=== PATIENT | male | born 1935 | race Caucasian/White ===

== ENCOUNTER → 2018-05-12 10:53 | Outpatient (CLI) | payer MEDICARE, BC ==
[~2018-05-12 10:53] MED LIST: ASCORBIC ACID500 MG PO; ASPIRIN325 MG PO; BAYER CHEWABLE81 MG PO; CATAPRES0.1 MG PO; EFFIENT10 MG PO; NEXIUM40 MG PO; NITROSTAT0.4 MG SL; PLAVIX75 MG PO; PRAVACHOL40 MG PO; PRILOSEC20 MG PO; STOOL SOFTENER240 MG PO; TRIBENZOR 40-11 EAC1 PO; [UNRECOGNIZED DRUG - OTHER] PO
== END | disposition home or self-care (01) ==
LOC: D.CT 10:53
DX: R91.8 Other nonspecific abnormal finding of lung field (principal); R49.0 Dysphonia; T17.920A Food in respiratory tract, part unspecified causing asphyxiation, initial encounter

== ENCOUNTER 2018-05-19 08:17 | Outpatient (CLI) | payer MEDICARE, BC ==
[~2018-05-19] VITALS: Ht 170.2 cm; Wt 69.5 kg
[2018-05-19 08:37] LABS: BASOPHILS 0.5 % (0-2); EOSINOPHILS 1.2 % (0-7); HEMATOCRIT 28.5 % (42.0-54.0); HEMOGLOBIN 9.2 g/dL (13.5-17.5); IMMATURE GRANULOCYTES 0.1 % (0-5); LYMPHOCYTES 27.5 % (15-50); MCH 28.6 pg (26.0-34.0); MCHC 32.3 g/dL (31.0-37.0); MCV 88.5 fL (80.0-100.0); MEAN PLATELET VOLUME 8.3 fL (7.4-10.4); MONOCYTES 8.8 % (2-11); NEUTROPHILS 61.9 % (40-80); PLATELET COUNT 267 10x3/uL (130-400); RBC 3.22 10x6/uL (4.20-6.10); RDW 14.8 % (11.5-14.5); WBC 7.5 10x3/uL (4.8-10.8)
[2018-05-19 08:43] LABS: ANION GAP 12.5 mmol/L (8-16); CALCIUM 9.2 mg/dL (8.5-10.1); CARBON DIOXIDE 27.6 mmol/L (21.0-32.0); CREATININE - SERUM 1.1 mg/dL (0.6-1.3); POTASSIUM - SERUM 4.1 mmol/L (3.5-5.1)
[2018-05-19 08:54] LABS: APTT 31.9 SECONDS (22.8-39.4); INR 1.04 (0.85-1.17); PROTIME 13.1 SECONDS (11.6-15.0)
[2018-05-19] MEDS ORDERED: MAG 6464 MG PO (09:47)
[2018-05-19] MEDS ORDERED: SLOW RELEASE I160 MG PO (09:48)
[2018-05-19] MEDS ORDERED: LOSARTAN-HCTZ1 EAC2 PO (09:48)
[2018-05-19] MEDS ORDERED: FLOMAX0.4 MG PO (09:48)
[2018-05-19 09:51] VITALS: Ht 170.2 cm; Wt 69.5 kg
--- NOTE | 2018-05-19 15:52 | NUR ---
1300-PORTABLE CHEST XRAY AT THIS TIME. 1430-ESCORTED VIA WHEELCHAIR TO PERSONAL CAR, LEFT WITH FAMILY DRIVING.
== END 2018-05-19 14:30 ==
LOC: D.SP 08:17 → D.CT 11:00 → D.SP 11:00
PROVIDERS: General Practice
DX: R91.8 Other nonspecific abnormal finding of lung field (principal)

== ENCOUNTER 2018-07-06 07:59 | Inpatient (IN) | payer MEDICARE, BC ==
[~2018-07-06] VITALS: Ht 170.2 cm; Wt 63.1 kg
[~2018-07-06 07:59] MED LIST changes: +FLOMAX0.4 MG PO; +LOSARTAN-HCTZ1 EAC2 PO; +MAG 6464 MG PO; +SLOW RELEASE I160 MG PO
[2018-07-06] MEDS ORDERED: METOPROLOL TART25 MG PO (09:44)
[2018-07-06] MEDS ORDERED: MAG-OX 400 MG400 MG PO (09:46)
[2018-07-06] MEDS ORDERED: COLACE100 MG PO (09:47)
[2018-07-06 11:30] LABS: BASOPHILS 0.5 % (0-2); EOSINOPHILS 1.8 % (0-7); HEMATOCRIT 30.7 % (42.0-54.0); HEMOGLOBIN 9.8 g/dL (13.5-17.5); IMMATURE GRANULOCYTES 0.6 % (0-5); LYMPHOCYTES 27.7 % (15-50); MCH 29.5 pg (26.0-34.0); MCHC 31.9 g/dL (31.0-37.0); MCV 92.5 fL (80.0-100.0); MEAN PLATELET VOLUME 9.6 fL (7.4-10.4); MONOCYTES 10.6 % (2-11); NEUTROPHILS 58.8 % (40-80); PLATELET COUNT 216 10x3/uL (130-400); RBC 3.32 10x6/uL (4.20-6.10); WBC 9.6 10x3/uL (4.8-10.8)
[2018-07-06 11:40] LABS: APTT 33.5 SECONDS (22.8-39.4); INR 1.07 (0.85-1.17); PROTIME 13.4 SECONDS (11.6-15.0)
[2018-07-06 11:47] LABS: ALBUMIN 2.6 g/dL (3.4-5.0); ANION GAP 13.5 mmol/L (8-16); BILIRUBIN - TOTAL 0.24 mg/dL (0.2-1.3); CALCIUM 8.4 mg/dL (8.5-10.1); CARBON DIOXIDE 26.5 mmol/L (21.0-32.0); CREATININE - SERUM 1.1 mg/dL (0.6-1.3); PROTEIN - SERUM 7.7 g/dL (6.4-8.2)
[2018-07-06 12:00] LABS: APPEARANCE HAZY (CLEAR); COLOR YELLOW (YELLOW); GLUCOSE NEGATIVE (NEGATIVE); NITRITE NEGATIVE (NEGATIVE); PROTEIN TRACE mg/dL (NEGATIVE); SPECIFIC GRAVITY 1.005 (1.005-1.020)
[2018-07-06 12:01] LABS: BACTERIA FEW /hpf (NONE SEEN); BILIRUBIN NEGATIVE (NEGATIVE); EPITHELIAL CELLS OCC /hpf (0-5); KETONE NEGATIVE (NEGATIVE); UROBILINOGEN NORMAL (NORMAL)
[2018-07-09] VITALS (56 sets, daily range): BP systolic 100–161; BP diastolic 39–520; BMI 25.2
--- NOTE | 2018-07-09 15:34 | MORECARE ---
CASE MANAGEMENT DISCHARGE SUMMARY PATIENT: DELILAH CR UNIT: [id number] ADM DATE: 07/09/18 AGE: 83 : 36 SEX: M [facility] AUTHOR: MISSY HEAD PHYSICIAN: REFERRING PHYSICIAN: DERIK BISHOP MD DATE OF SERVICE: 07/09/18 Discharge Plan Patient Name: DELILAH CR [facility] [facility] 1935 Planned Disposition: Home Anticipated Discharge Date: Discharge Date: Expected LOS: Initial Reviewer: [email or web address] Initial Review Date: 07/09/2018 Generated: 07/09/18 4:34 pm DCPIA - Discharge Planning Initial Assessment Updated by [email or web address]: Jessica Garcia on 07/09/18 3:34 pm * Is the patient Alert and Oriented? Yes * How many steps to enter\exit or inside your home? ramp * PCP PROSPER * Pharmacy [facility] * Preadmission Environment Home with Family * ADLs Independent * Other Equipment BSC, WALKER, CANE, SHOWER CHAIR * List name and contact numbers for known caregivers / representatives who currently or will assist patient after discharge: LATONIA CR - SPOUSE- [phone], [phone] * Verbal permission to speak to the caregivers and representatives has been obtained from the patient. Yes * Community resources currently utilized None * Additional services required to return to the preadmission environment? No * Can the patient safely return to the preadmission environment? Yes * Has this patient been hospitalized within the prior 30 days at any hospital? No Patient Name: DELILAH CR Page 27769 at 1534 All edits/amendments must be made on the electronic document DICTATION DATE: 07/09/18 153 MINE WEDGE SAWYER: OSMAN 07/09/18 153 RPT#: [id number] DC DATE: STATUS: ADM IN [facility] [address] [place] [address] END OF REPORT
--- NOTE | 2018-07-09 15:44 | MORECARE ---
CASE MANAGEMENT DISCHARGE SUMMARY PATIENT: DELILAH CR UNIT: [id number] ADM DATE: 07/09/18 AGE: 83 : 36 SEX: M ROOM/BED: D.[facility] AUTHOR: ADILENEDOC PHYSICIAN: REFERRING PHYSICIAN: DERIK BISHOP MD DATE OF SERVICE: 07/09/18 Discharge Plan Patient Name: DELILAH CR Facility: [facility]:[place] : 1935 Planned Disposition: Home Anticipated Discharge Date: Discharge Date: Expected LOS: Initial Reviewer: [email or web address] Initial Review Date: 07/09/2018 Generated: 07/09/18 4:44 pm Comments DCP- Discharge Planning Updated by [email or web address]: Jessica Garcia on 07/09/18 2:[address] Patient Name: DELILAH CR Admission Status: Elective Accout number: [id number] Admission Date: 07-09-2018 : 1935 Admission Diagnosis: Attending: DERIK BISHOP Current LOS: 1 Anticipated DC Date: Planned Disposition: Home Primary Insurance: MEDICARE A & B Discharge Planning Comments: CM met with patient and spouse at bedside after obtaining verbal consent. Patient states he plans on returning home after discharge with his . Patient states he will have family transport him home via private vehicle. Patient denies any discharge needs at this time. CM will continue to follow and assist as needed for discharge planning / needs. Seed Sales Manager: Jessica Garcia DCPIA - Discharge Planning Initial Assessment Updated by [email or web address]: Jessica Garcia on 07/09/18 3:34 pm * Is the patient Alert and Oriented? Yes * How many steps to enter\exit or inside your home? ramp * PCP PROSPER * [facility]acy [facility] * Preadmission Environment Home with Family * ADLs Independent * Other Equipment BSC, WALKER, CANE, SHOWER CHAIR * List name and contact numbers for known caregivers / representatives who currently or will assist patient after discharge: LATONIA CR - SPOUSE- [phone], [phone] * Verbal permission to speak to the caregivers and representatives has been obtained from the patient. Yes * Community resources currently utilized None * Additional services required to return to the preadmission environment? No * Can the patient safely return to the preadmission environment? Yes * Has this patient been hospitalized within the prior 30 days at any hospital? No Last DP export: 07/09/18 2:34 p Patient Name: DELILAH CR Page 69508 at 1544 All edits/amendments must be made on the electronic document DICTATION DATE: 07/09/181542 PUBLIC RELATIONS SPECIALIST: OSMAN 07/09/181542 RPT#: [id number] DC DATE: STATUS: ADM IN [facility] [address] [place] [address] END OF REPORT
--- NOTE | 2018-07-09 19:00 | NUR ---
REPORT RECEIVED CARE ASSUMED. ASSESSMENT DONE SEE FLOW SHEET. VSS. PT SPEAKS IN WHISPER DUE TO PREVIOUS THROAT CANCER. PT STATES HE HAS DIFFICULTY SWALLOWING. ICU MONITORS IN PLACE ALARMS SET AND VERIFIED WILL CONTINUE TO MONITOR.
--- NOTE | 2018-07-09 21:00 | NUR ---
MEDS GIVEN PER MAR. PT TAKES MEDS WHOLE WITH APPLE SAUCE. PT STATES HE CANNOT DRINK WATER. COMPLETE BED BATH GIVEN PARTIAL LINEN CHANGE.
--- NOTE | 2018-07-09 23:00 | NUR ---
REASSESSMENT DONE SEE FLOW SHEET. VSS. NO SIGNS OF ACUTE DISTRESSS NOTED. WEANED NC TO 2LPM. WILL CONTINUE TO MONITOR.
[2018-07-10] VITALS (50 sets, daily range): BP systolic 97–156; BP diastolic 43–104; Ht 170.2 cm; Wt 63.1 kg
--- NOTE | 2018-07-10 01:00 | NUR ---
WEANED NITRO OFF. BP LESS THAN 140. VSS. PT VERBALIZES NO COMPLAINTS. WILL CONTINUE TO MONITOR.
--- NOTE | 2018-07-10 02:56 | NUR ---
REASSESSMENT DONE SEE FLOW SHEET. VSS. NO SIGNS OF ACUTE DISTRESS NOTED WILL CONTINUE TO MONITOR.
--- NOTE | 2018-07-10 05:00 | NUR ---
ICE CHIPS PROVIDED PER PT REQUEST. VSS. WILL CONTINUE TO MONITOR.
[2018-07-10 05:41] LABS: HEMATOCRIT 23.8 % (42.0-54.0); HEMOGLOBIN 7.7 g/dL (13.5-17.5); MCH 29.8 pg (26.0-34.0); MCHC 32.4 g/dL (31.0-37.0); MCV 92.2 fL (80.0-100.0); MEAN PLATELET VOLUME 10.1 fL (7.4-10.4); RBC 2.58 10x6/uL (4.20-6.10); RDW 21.7 % (11.5-14.5); WBC 7.9 10x3/uL (4.8-10.8)
--- NOTE | 2018-07-10 05:56 | NUR ---
PT AWAKE. TITRATING NITRO TO AFFECT.
[2018-07-10 06:11] LABS: CALC OSMOLALITY 266 mosm/kg (275-300); CALCIUM 7.6 mg/dL (8.5-10.1); CARBON DIOXIDE 24.4 mmol/L (21.0-32.0); CHLORIDE - SERUM 100 mmol/L (98-107); GLUCOSE 89 mg/dL (74-106); POTASSIUM - SERUM 4.3 mmol/L (3.5-5.1); SODIUM 134 mmol/L (136-145); UREA NITROGEN 12 mg/dL (7-18); eGFR NON AFRICAN AMERICAN 76 mL/min (90-120)
--- NOTE | 2018-07-10 07:00 | NUR ---
REC'D CARE OF PT. A&O X3. TITRATING NITRO AND CLEVEPREX TO EFFECT. DENIES NEEDS EXCEPT WANTED BREAKFAST. TOLD HIM THEY WOULD BE BRING BREAKFAST TRAYS SOON.
--- NOTE | 2018-07-10 07:37 | NUR ---
BREAKFAST TRAY SERVED.
--- NOTE | 2018-07-10 07:55 | NUR ---
AT BEDSIDE. UPDATE BY PT.
--- NOTE | 2018-07-10 08:03 | NUR ---
INITIAL ASSESSMENT COMPLETED PER FLOW SHEET.
--- NOTE | 2018-07-10 08:51 | NUR ---
SPOKE WITH DR. JUNIOR ABOUT CONSULT.
--- NOTE | 2018-07-10 08:52 | NUR ---
LEE PARRA SPOKE WITH DR. DE LOS SANTOS ABOUT CONSULT.
--- NOTE | 2018-07-10 08:53 | NUR ---
OOB TO CHAIR WITH PT
--- NOTE | 2018-07-10 09:11 | NUR ---
REQUESTED ICE, WARM BLANKET AND SOMETHING FOR NAUSEA. OBLIGED.
--- NOTE | 2018-07-10 09:37 | NUR ---
NAUSEA IS BETTER.
--- NOTE | 2018-07-10 10:24 | NUR ---
ADMISSION ASSESSMENT COMPLETED FOR ACTUAL TIME OF ADMIT ON 05/08/19.
--- NOTE | 2018-07-10 11:00 | NUR ---
REASSESSMENT COMPLETED PER FLOW SHEET. NO ACUTE CHANGES.
--- NOTE | 2018-07-10 11:08 | NUR ---
DR. BISHOP AT BEDSIDE.
--- NOTE | 2018-07-10 11:39 | NUR ---
DC'D ART LINE WITH TIP INTACT. DC'D IVF.
--- NOTE | 2018-07-10 13:00 | NUR ---
FAMILY AT BEDSIDE. DENIES NEEDS.
--- NOTE | 2018-07-10 14:21 | NUR ---
AMBULATED 50 FEET WITH ANTWAN PT AND BACK TO BED.
--- NOTE | 2018-07-10 14:42 | NUR ---
CLEVEPREX BEING TITRATED TO EFFECT.
--- NOTE | 2018-07-10 14:55 | NUR ---
REPORT GAVE TO LEE HATHAWAY RN AND SHE ASSUMED CARE.
--- NOTE | 2018-07-10 15:01 | NUR ---
PULLS [phone] ON IS.
--- NOTE | 2018-07-10 15:04 | NUR ---
DESATS TO 89% WHEN HE IS ASLEEP AND MOUTH BREATHING.
--- NOTE | 2018-07-10 20:21 | NUR ---
1900 REPORT RECEIVED CARE ASSUMED. PT LAYING IN BED RESTING. ASSESSMENT DONE SEE FLOW SHEET. VSS. NO SIGNS OF ACUTE DISTRESS NOTED. WILL CONTINUE TO MONITOR. 2020 MEDS GIVEN PER JUL. MEDS TAKEN WITH APPLESAUCE WILL CONTINUE TO MONTIOR.
--- NOTE | 2018-07-10 22:55 | NUR ---
REASSESSMENT DONE SEE FLOW SHEET. VSS. WILL CONTINUE TO MONITOR.
[2018-07-11] VITALS (13 sets, daily range): BP systolic 92–154; BP diastolic 48–80
--- NOTE | 2018-07-11 01:00 | NUR ---
ICE CHIPS PROVIDED PER PT REQUEST WILL CONINUE TO MONITOR.
--- NOTE | 2018-07-11 02:46 | NUR ---
REASSESSMENT DONE SEE FLOW SHEET. VSS. PT RESTING COMFORTABLEY.
--- NOTE | 2018-07-11 03:38 | NUR ---
GROUP OF PVCS NOTED. QUICKLY RESOLVED. VSS. NO SIGNS OF ACUTE DISTRESS NOTED WILL CONTINUE TO MONITOR.
--- NOTE | 2018-07-11 05:00 | NUR ---
PT IN BED RESTING. PARTIAL BED BATH GIVEN VSS. COMPLETE LINEN CHANGE PROVIDED. NO SIGNS OF ACUTE DISTRESS. ICE PROVIDED PER PT REQUEST.
[2018-07-11 06:15] LABS: BASOPHILS 0.5 % (0-2); EOSINOPHILS 0 % (0-7); HEMATOCRIT 24.7 % (42.0-54.0); IMMATURE GRANULOCYTES 0.5 % (0-5); LYMPHOCYTES 17.8 % (15-50); MCH 29.2 pg (26.0-34.0); MCHC 32.4 g/dL (31.0-37.0); MCV 90.1 fL (80.0-100.0); MEAN PLATELET VOLUME 10.1 fL (7.4-10.4); MONOCYTES 13.7 % (2-11); NEUTROPHILS 67.5 % (40-80); PLATELET COUNT 116 10x3/uL (130-400); RBC 2.74 10x6/uL (4.20-6.10); RDW 20.9 % (11.5-14.5); WBC 6.2 10x3/uL (4.8-10.8)
--- NOTE | 2018-07-11 07:00 | NUR ---
REC'D CARE OF PT. RESTING WITH EYES CLOSED. RESPONSE APPROPRIATE TO VERBAL STIMULI. A&O X3.
--- NOTE | 2018-07-11 08:10 | NUR ---
PEREA CATH DC'D FROM BLADDER
--- NOTE | 2018-07-11 09:16 | NUR ---
AMBULATED 200 FEET WITH ANTWAN PT AND PLACED IN CHAIR.
--- NOTE | 2018-07-11 09:26 | NUR ---
AT BEDSIDE. UPDATED.
--- NOTE | 2018-07-11 10:30 | NUR ---
SATTING 100% ON 6L NC. DOES NOT WEAR O2 AT HOME. TURNED OFF.
--- NOTE | 2018-07-11 10:48 | NUR ---
REASSESSMENT COMPLETED. NO ACUTE CHANGES.
--- NOTE | 2018-07-11 10:50 | NUR ---
SATTING 91% ON RA. NO DISTRESS.
--- NOTE | 2018-07-11 11:46 | NUR ---
FAMILY AT BEDSIDE. DENIES NEEDS.
--- NOTE | 2018-07-11 11:47 | NUR ---
SATTING 95% ON RA.
--- NOTE | 2018-07-11 13:27 | OP ---
PATIENT NAME: DELILAH CR MEDICAL RECORD: [id number] :[birth year] LOCATION:D.CVI D.CV07 ADMISSION DATE:07/09/18 SURGEON: ADRIÁN BISHOP MD DATE OF OPERATION: 07/09/2018 SURGEON: Adrián Bishop MD DIRECTOR PERSONAL: CARMELO Valadez MD ANESTHESIA: General endotracheal anesthesia. 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 PROCEDURES PERFORMED: 1. Insertion of bifurcated aortic endograft. 2. Insertion of suprarenal extension. 3. Insertion of left iliac extension. 4. Aortogram times 5. 5. Left iliac angiogram x2. 6. Aortic angioplasty. 7. Open exposure, left femoral artery. ESTIMATED BLOOD LOSS: 50 cc. COMPLICATIONS: None. SPECIMENS: None. CONDITION: Stable. DISPOSITION: CV ICU. OPERATIVE FINDINGS: 1. No endoleak. 2. The left limb was extended due to only moderate coverage of an ectatic vessel. OPERATIVE INDICATIONS: Lung cancer, undergoing chemotherapy with enlarging abdominal aortic aneurysm and bilateral iliac aneurysms. PROCEDURE IN DETAIL: The patient was brought to the operative suite. General anesthesia was obtained. The patient was prepped and draped. Ultrasound-guided access of the right common femoral was performed. Micropuncture technique was performed and using fluoroscopic guidance, a 7-Kyrgyz sheath was placed on the left side, incision was made, taken down to the common femoral artery, which was dissected out proximally to the level of the inguinal ligament and controlled with vessel loops. Heparin was given. The left common femoral artery was accessed with micropuncture technique and a 7-Kyrgyz sheath was placed due to noncontrasted preoperative studies, a guidewire was placed from the right, pigtail catheter was placed. Attempt was OPERATIVE REPORT [id number] DELILAH CR made to pass the guidewire from the left but an aberrant course ensued. Then, a guiding catheter and an angulated guiding catheter were used without success to enter the aorta. Iliac angiogram through the sheath revealed a subintimal passage and the wire and guiding catheter were removed. Aortogram was performed using the measuring pigtail from the right side and used to decide the length of the main body and extension. On the right side, the wire was again placed and the snare catheter and then the snare on the left side. Attempts were again made to pass the guidewire. Another sheath injection was used to guide placement of the guidewire into the distal aorta, then the guiding catheter used to place the soft guidewire more distally, guiding catheter was passed above the renals and the soft guidewire was exchanged for the stiff wire. Left femoral sheath was removed and the AFX sheath was inserted. Then, the bifurcated device, which was 28 x 120 with 20 mm and 40 length limbs, was loaded with a wire and the contralateral wire advanced up and snared from the right, pulled out on the right and the AFX introducer advanced under fluoroscopy until the distal limbs were above the aortic bifurcation, releasing the limbs uncoiling the graft and pulling the entire system down onto the aortic bifurcation. Once confirmed, the main body was deployed. Then, the contralateral limb was deployed. Pigtail was advanced over the contralateral wire releasing the wire and the pigtail was placed in the suprarenal aorta. The left limb was then deployed by pending the inner core and retracting the AFX introducer sheath, a 34 x 100 suprarenal graft extension was loaded onto the stiff wire and brought into place and then an angiogram was performed to visualize the renal arteries. The suprarenal extension was deployed, but prior to the final deployment another angiogram performed to confirm the placement near the right renal. The pigtail catheter was then re-formed in the distal aorta and passed back between the elements in the center of flow and again into the suprarenal aorta. A final run was performed with a good seal proximally, but distally some concern on the left aortic angioplasty was performed using a drug-coated balloon. A 20-25 mm 65 mm long iliac extension was placed on the left, well above the iliac bifurcation. Then, a distal aortogram was performed with good seal. The left limb was ballooned with a 12 x 40 balloon. Final angiogram was good. The pigtail was removed. Left-sided sheath was removed. Primary closure of the left femoral artery with interrupted Prolene suture. Protamine was given. Angio-Seal was deployed on the right. No hematoma was noted. Left groin was closed in 2 layers and Dermabond to the skin. The patient had Doppler dorsalis pedis and posterior tibial pulses and after reversal of anesthesia, was taken to the CV ICU. TRANSINT:[id number] Voice Confirmation ID: [id number] DOCUMENT ID: [id number] ADRIÁN BISHOP MD at 1327 CC: TRISTON DEUTSCH MD [id number] DICTATION DATE: 07/09/18 1343 PROFESSOR OF ECONOMICS: 07/09/18 2335 ADM IN [place] [id number] [place] [id number]
--- NOTE | 2018-07-11 13:36 | NUR ---
I SPOKE WITH CHRIS SPENCE WITH DR. JUNIOR'S OFFICE ABOUT H&H VALUES SHE SAID TO NOT TRANSFUSE.
--- NOTE | 2018-07-11 13:40 | NUR ---
DC CVL AND DISCHARGE HOME PER DR. BISHOP.
--- NOTE | 2018-07-11 13:43 | NUR ---
AMBULATED 200 FEET AND BACK TO CHAIR BY ANTWAN PATTERSON
--- NOTE | 2018-07-11 13:57 | NUR ---
DC'D RIGHT IJ CENTRAL LINE.
--- NOTE | 2018-07-11 14:00 | NUR ---
PATIENT ED PRINTED AND SUPPIED.
--- NOTE | 2018-07-11 14:13 | NUR ---
REVIEWED MEDS AND DC INSTRUCTIONS. TRANSPORTING VIA WC TO FRONT OF CVICU AND ASSISTED INTO VEHICLE.
--- NOTE | 2018-07-12 10:31 | MORECARE ---
CASE MANAGEMENT DISCHARGE SUMMARY PATIENT: DELILAH CR UNIT: [id number] ADM DATE: 07/09/18 AGE: 83 : 36 SEX: M ROOM/BED: D.[facility] AUTHOR: ADILENE,DOC PHYSICIAN: REFERRING PHYSICIAN: DERIK BISHOP MD DATE OF SERVICE: 07/12/18 Discharge Plan Patient Name: DELILAH CR Facility: [facility]:[place] : 1935 Planned Disposition: Home Anticipated Discharge Date: Discharge Date: 07/11/2018 Expected LOS: Initial Reviewer: [email or web address] Initial Review Date: 07/09/2018 Generated: 07/12/18 11:31 am Comments DCP- Discharge Planning Updated by [email or web address]: Jessica Garcia on 07/09/18 2:[address] Patient Name: DELILAH CR Admission Status: Elective Accout number: [id number] Admission Date: 07-09-2018 : 1935 Admission Diagnosis: Attending: DERIK BISHOP Current LOS: 1 Anticipated DC Date: Planned Disposition: Home Primary Insurance: MEDICARE A & B Discharge Planning Comments: CM met with patient and spouse at bedside after obtaining verbal consent. Patient states he plans on returning home after discharge with his . Patient states he will have family transport him home via private vehicle. Patient denies any discharge needs at this time. CM will continue to follow and assist as needed for discharge planning / needs. Foundry Tender: Jessica Garcia DCPIA - Discharge Planning Initial Assessment Updated by [email or web address]: Jessica Garcia on 07/09/18 3:34 pm * Is the patient Alert and Oriented? Yes * How many steps to enter\exit or inside your home? ramp * PCP PROSPER * Pharmacy [facility] * Preadmission Environment Home with Family * ADLs Independent * Other Equipment BSC, WALKER, CANE, SHOWER CHAIR * List name and contact numbers for known caregivers / representatives who currently or will assist patient after discharge: LATONIA CR - SPOUSE- [phone], [phone] * Verbal permission to speak to the caregivers and representatives has been obtained from the patient. Yes * Community resources currently utilized None * Additional services required to return to the preadmission environment? No * Can the patient safely return to the preadmission environment? Yes * Has this patient been hospitalized within the prior 30 days at any hospital? No Last DP export: 07/09/18 2:44 p Patient Name: DELILAH CR Page 05310 at 1031 All edits/amendments must be made on the electronic document DICTATION DATE: 07/12/18 1031 INFORMATION ASSURANCE ENGINEER: OSMAN 07/12/18 1031 RPT#: [id number] DC DATE:07/11/18 STATUS: DIS IN [facility] [address] [place] [address] END OF REPORT
== END 2018-07-11 14:40 | disposition home or self-care (01) | DRG 269 ==
LOC: D.CVICU 07-09 05:06 → D.SDCHOLD 07-09 05:06 → D.CVICU 07-09 09:01
PROVIDERS: Family Medicine; ADMIT Thoracic Surgery (Cardiothoracic Vascular Surgery)
PROC: 04V03EZ Restriction of Abdominal Aorta with Branched or Fenestrated Intraluminal Device, One or Two Arteries, Percutaneous Approach (ICD-10-PCS; principal; 2018-07-09 07:30)
DX: I71.4 Abdominal aortic aneurysm, without rupture (principal); C34.12 Malignant neoplasm of upper lobe, left bronchus or lung; D62 Acute posthemorrhagic anemia; I10 Essential (primary) hypertension; I72.3 Aneurysm of iliac artery; K21.9 Gastro-esophageal reflux disease without esophagitis; D64.81 Anemia due to antineoplastic chemotherapy

== ENCOUNTER → 2018-07-19 10:44 | Outpatient (CLI) | payer MEDICARE, BC ==
[2018-07-10 16:37] VITALS: BMI 21.1
[~2018-07-19 10:44] MED LIST changes: +COLACE100 MG PO; +MAG-OX 400 MG400 MG PO; +METOPROLOL TART25 MG PO
== END | disposition home or self-care (01) ==
LOC: D.US 10:44
DX: I72.9 Aneurysm of unspecified site (principal)

== ENCOUNTER 2018-07-22 10:15 | Outpatient (CLI) | payer MEDICARE, BC ==
[~2018-07-22] VITALS: Ht 170.2 cm; Wt 61.4 kg
[2018-07-22 17:50] VITALS: BP 149/81; Ht 170.2 cm; Wt 61.4 kg
--- NOTE | 2018-07-22 17:58 | NUR ---
1400-IV SITED TO R HAND X 1 20G. 1415-BLOOD CHECKED AT BEDSIDE AND STARTED AT 100CC/HR 1430-BLOOD INCREASED TO 200CC/HR 1500-BLOOD INCREASED TO 250CC/HR PER PUMP. ORAL FLUIDS GIVEN. DENIES SOB, NO ITCHING OR RASH. 1545-BLOOD COMPLETE 1600-IV D.C AND DISCHARGE INSTRUCTIONS REVIEWED. 1615-D/C HOME VIA WHEELCHAIR WITH .
== END 2018-07-22 16:15 | disposition home or self-care (01) ==
LOC: D.OPS 10:15
PROVIDERS: ATTEND Internal Medicine Medical Oncology
DX: D64.9 Anemia, unspecified (principal); C34.90 Malignant neoplasm of unspecified part of unspecified bronchus or lung

== ENCOUNTER → 2018-08-11 07:23 | Outpatient (CLI) | payer MEDICARE, BC ==
[2018-07-22 17:50] VITALS: BMI 21.2
== END | disposition home or self-care (01) ==
LOC: D.CT 08-09 09:30
PROVIDERS: ATTEND Thoracic Surgery (Cardiothoracic Vascular Surgery)
DX: I71.4 Abdominal aortic aneurysm, without rupture (principal)

== ENCOUNTER 2018-08-16 11:08 | Inpatient (IN) | payer MEDICARE, BC ==
[~2018-08-16] VITALS: Ht 170.2 cm; Wt 74.4 kg
[2018-08-16 11:39] VITALS: BP 155/90; BMI 25.7
[2018-08-16 13:53] LABS: BASOPHILS 0.2 % (0-2); EOSINOPHILS 1.5 % (0-7); IMMATURE GRANULOCYTES 0.6 % (0-5); LYMPHOCYTES 21.6 % (15-50); MCH 29.2 pg (26.0-34.0); MCHC 30.8 g/dL (31.0-37.0); MCV 94.9 fL (80.0-100.0); MEAN PLATELET VOLUME 11.4 fL (7.4-10.4); MONOCYTES 12.8 % (2-11); NEUTROPHILS 63.3 % (40-80); RBC 2.53 10x6/uL (4.20-6.10); RDW 20.6 % (11.5-14.5); WBC 8.7 10x3/uL (4.8-10.8)
[2018-08-16 13:54] LABS: ALBUMIN 1.8 g/dL (3.4-5.0); ALKALINE PHOSPHATASE 90 U/L (46-116); ALT (SGPT) 19 U/L (10-68); BILIRUBIN - TOTAL 0.22 mg/dL (0.2-1.3); CALC OSMOLALITY 270 mosm/kg (275-300); CALCIUM 7.6 mg/dL (8.5-10.1); CHLORIDE - SERUM 102 mmol/L (98-107); GLUCOSE 124 mg/dL (74-106); POTASSIUM - SERUM 3.8 mmol/L (3.5-5.1); PROTEIN - SERUM 6.4 g/dL (6.4-8.2); SODIUM 135 mmol/L (136-145); UREA NITROGEN 13 mg/dL (7-18); eGFR NON AFRICAN AMERICAN 76 mL/min (90-120)
[2018-08-16 13:56] LABS: PLATELET COUNT 91 10x3/uL (130-400)
[2018-08-16 13:58] LABS: HEMOGLOBIN 7.5 g/dL (13.5-17.5)
[2018-08-16 14:30] VITALS: BP 162/76
[2018-08-16 14:32] LABS: PLATELET ESTIMATE DECREASED
[2018-08-16 14:41] LABS: APTT 37.1 SECONDS (22.8-39.4); INR 1.22 (0.85-1.17); PROTIME 14.9 SECONDS (11.6-15.0)
[2018-08-16 16:00] VITALS: BP 145/69
[2018-08-16 19:00] VITALS: BP 140/69
[2018-08-16 22:39] LABS: APPEARANCE CLEAR (CLEAR); BILIRUBIN NEGATIVE (NEGATIVE); COLOR YELLOW (YELLOW); GLUCOSE NEGATIVE (NEGATIVE); KETONE NEGATIVE (NEGATIVE); NITRITE NEGATIVE (NEGATIVE); PROTEIN TRACE mg/dL (NEGATIVE); UROBILINOGEN NORMAL (NORMAL)
[2018-08-16 22:40] LABS: BACTERIA FEW /hpf (NONE SEEN); WHITE CELLS - URINE 25-50 /hpf (0-5)
[2018-08-16 23:00] VITALS: BP 134/71
[2018-08-17] VITALS (15 sets, daily range): BP systolic 136–165; BP diastolic 70–114; Ht 170.2 cm; Wt 74.4 kg
[2018-08-17 07:30] LABS: BASOPHILS 0.3 % (0-2); EOSINOPHILS 1.6 % (0-7); IMMATURE GRANULOCYTES 0.7 % (0-5); LYMPHOCYTES 25.4 % (15-50); MCH 29.4 pg (26.0-34.0); MCHC 32.5 g/dL (31.0-37.0); MEAN PLATELET VOLUME 10.7 fL (7.4-10.4); MONOCYTES 13.8 % (2-11); NEUTROPHILS 58.2 % (40-80); PLATELET COUNT 84 10x3/uL (130-400); RDW 19.7 % (11.5-14.5); WBC 7.3 10x3/uL (4.8-10.8)
[2018-08-17 07:32] LABS: HEMATOCRIT 29.2 % (42.0-54.0); HEMOGLOBIN 9.5 g/dL (13.5-17.5); MCV 90.4 fL (80.0-100.0); RBC 3.23 10x6/uL (4.20-6.10)
[2018-08-17 07:43] LABS: CALC OSMOLALITY 265 mosm/kg (275-300); CALCIUM 8.1 mg/dL (8.5-10.1); CARBON DIOXIDE 24.3 mmol/L (21.0-32.0); CHLORIDE - SERUM 100 mmol/L (98-107); CREATININE - SERUM 0.9 mg/dL (0.6-1.3); GLUCOSE 94 mg/dL (74-106); POTASSIUM - SERUM 4.2 mmol/L (3.5-5.1); SODIUM 132 mmol/L (136-145); UREA NITROGEN 14 mg/dL (7-18); eGFR NON AFRICAN AMERICAN 86 mL/min (90-120)
[2018-08-17 10:19] LABS: HEMATOCRIT 28.1 % (42.0-54.0); HEMOGLOBIN 9.1 g/dL (13.5-17.5)
--- NOTE | 2018-08-17 15:59 | MORECARE ---
CASE MANAGEMENT DISCHARGE SUMMARY PATIENT: DELILAH CR UNIT: [id number] ADM DATE: 08/16/18 AGE: 83 : 36 SEX: M ROOM/BED: D.2303 AUTHOR: MISSY HEAD PHYSICIAN: REFERRING PHYSICIAN: DERIK BISHOP MD DATE OF SERVICE: 08/17/18 Discharge Plan Patient Name: DELILAH CR [facility] [facility] 1935 Planned Disposition: Home Anticipated Discharge Date: Discharge Date: Expected LOS: Initial Reviewer: [email or web address] Initial Review Date: 08/16/2018 Generated: 08/17/18 4:59 pm DCPIA - Discharge Planning Initial Assessment Updated by [email or web address]: Jessica Garcia on 08/17/18 3:57 pm * Is the patient Alert and Oriented? Yes * How many steps to enter\exit or inside your home? * PCP PROSPER * [facility] * Preadmission Environment Home with Family * ADLs Independent * Other Equipment WALKER, CANE, BSC, SHOWER CHAIR * List name and contact numbers for known caregivers / representatives who currently or will assist patient after discharge: LATONIA CR - [phone] * Verbal permission to speak to the caregivers and representatives has been obtained from the patient. Yes * Community resources currently utilized None * Additional services required to return to the preadmission environment? No * Can the patient safely return to the preadmission environment? Yes * Has this patient been hospitalized within the prior 30 days at any hospital? No Patient Name: DELILAH CR Page 82879 at 1559 All edits/amendments must be made on the electronic document DICTATION DATE: 08/17/181557 ACTIVITIES SPECIALIST: OSMAN 08/17/18 155 RPT#: [id number] DC DATE: STATUS: ADM IN [facility] [address] [place] [address] END OF REPORT
--- NOTE | 2018-08-17 16:06 | OP ---
PATIENT NAME: DELILAH CR MEDICAL RECORD: [id number] :37 LOCATION:.[facility] D.2303 ADMISSION DATE:08/16/18 SURGEON: ADRIÁN BISHOP MD DATE OF OPERATION: 08/17/2018 SURGEON: Adrián Bishop MD SANDBLASTER SUPERVISOR: Ricki Cantu PROCEDURE PERFORMED: Drainage of left femoral seroma and primary closure. PREOPERATIVE DIAGNOSIS: Seroma after femoral artery exposure for endovascular abdominal aortic aneurysm repair. POSTOPERATIVE DIAGNOSIS: Seroma after femoral artery exposure for endovascular abdominal aortic aneurysm repair. ANESTHESIA: General with 15 cc of 0.25% Marcaine local. SPECIMENS: None. COMPLICATIONS: None. DISPOSITION: ICU. CONDITION: Stable. INDICATIONS: Seroma now draining spontaneously. OPERATIVE FINDINGS: No discrete lymphatic channel, but mass oversewing up the subcutaneous tissue. DESCRIPTION OF PROCEDURE: The patient was taken to the operating suite where laryngeal airway was used, 1% Marcaine was used. The seroma cavity was opened, debrided, made hemostatic and closed in mass with 2 layers and the subcutaneous tissue and skin. Dressing was applied. The patient was taken to recovery room in stable condition. TRANSINT:[id number] Voice Confirmation ID: [id number] DOCUMENT ID: [id number] ADRIÁN BISHOP MD at 1606 CC: TRISTON DEUTSCH MD [id number] DICTATION DATE: 08/17/18 1308 TALENT DEVELOPMENT COORDINATOR: 08/17/18 1419 ADM IN [place] [id number] [place] [address]
--- NOTE | 2018-08-17 16:12 | MORECARE ---
CASE MANAGEMENT DISCHARGE SUMMARY PATIENT: DELILAH CR UNIT: [id number] ADM DATE: 08/16/18 AGE: 83 : 36 SEX: M ROOM/BED: D.2303 AUTHOR: MISSY HEAD PHYSICIAN: REFERRING PHYSICIAN: DERIK BISHOP MD DATE OF SERVICE: 08/17/18 Discharge Plan Patient Name: DELILAH CR Facility: [facility]:[place] : 1935 Planned Disposition: Home Anticipated Discharge Date: Discharge Date: Expected LOS: Initial Reviewer: [email or web address] Initial Review Date: 08/16/2018 Generated: 08/17/18 5:11 pm Comments DCP- Discharge Planning Updated by [email or web address]: Jessica Garcia on 08/17/18 3:[address] Patient Name: DELILAH RC Admission Status: Elective Accout number: [id number] Admission Date: 08-16-2018 : 1935 Admission Diagnosis: Attending: DERIK BISHOP Current LOS: 1 Anticipated DC Date: Planned Disposition: Home Primary Insurance: MEDICARE A & B Discharge Planning Comments: CM met with patient and his spouse at bedside. Patient states that he lives at home with his Latonia and he plans to return there upon discharge. Patient states he has a walker, cane, BSC and shower chair. Patient denies any Home Health services prior to admission. Patient states he feels safe within his home. Patient denies any discharge needs. CM will continue to follow and assist as needed with discharge planning / needs. Assistant Merchandiser: Jessica Garcia DCPIA - Discharge Planning Initial Assessment Updated by [email or web address]: Jessica Garcia on 08/17/18 3:57 pm * Is the patient Alert and Oriented? Yes * How many steps to enter\exit or inside your home? * PCP PROSPER * [facility] * Preadmission Environment Home with Family * ADLs Independent * Other Equipment WALKER, CANE, BSC, SHOWER CHAIR * List name and contact numbers for known caregivers / representatives who currently or will assist patient after discharge: LATONIA CR - [phone] * Verbal permission to speak to the caregivers and representatives has been obtained from the patient. Yes * Community resources currently utilized None * Additional services required to return to the preadmission environment? No * Can the patient safely return to the preadmission environment? Yes * Has this patient been hospitalized within the prior 30 days at any hospital? No Last DP export: 08/17/18 2:59 p Patient Name: DELILAH CR Page 38901 at 1612 All edits/amendments must be made on the electronic document DICTATION DATE: 08/17/181610 REEFER TRUCK DRIVER: DM 08/17/181610 RPT#: [id number] DC DATE: STATUS: ADM IN [facility] [address] [place] [address] END OF REPORT
[2018-08-18] VITALS (11 sets, daily range): BP systolic 140–166; BP diastolic 82–99
[2018-08-18 04:55] LABS: CALC OSMOLALITY 264 mosm/kg (275-300); CALCIUM 7.4 mg/dL (8.5-10.1); CARBON DIOXIDE 25.9 mmol/L (21.0-32.0); CHLORIDE - SERUM 100 mmol/L (98-107); CREATININE - SERUM 0.9 mg/dL (0.6-1.3); GLUCOSE 93 mg/dL (74-106); POTASSIUM - SERUM 3.8 mmol/L (3.5-5.1); SODIUM 132 mmol/L (136-145); UREA NITROGEN 12 mg/dL (7-18); eGFR NON AFRICAN AMERICAN 86 mL/min (90-120)
[2018-08-18 10:01] LABS: HEMATOCRIT 28.8 % (42.0-54.0); HEMOGLOBIN 9.5 g/dL (13.5-17.5)
--- NOTE | 2018-08-19 09:02 | MORECARE ---
CASE MANAGEMENT DISCHARGE SUMMARY PATIENT: DELILAH CR UNIT: [id number] ADM DATE: 08/16/18 AGE: 83 : 36 SEX: M ROOM/BED: D.2303 AUTHOR: MISSY HEAD PHYSICIAN: REFERRING PHYSICIAN: DERIK BISHOP MD DATE OF SERVICE: 08/19/18 Discharge Plan Patient Name: DELILAH CR Facility: [facility]:[place] : 1935 Planned Disposition: Home Anticipated Discharge Date: Discharge Date: 08/18/2018 Expected LOS: Initial Reviewer: [email or web address] Initial Review Date: 08/16/2018 Generated: 08/19/18 10:02 am Comments DCP- Discharge Planning Updated by [email or web address]: Jessica Garcia on 08/17/18 3:[address] Patient Name: DELILAH CR Admission Status: Elective Accout number: [id number] Admission Date: 08-16-2018 : 1935 Admission Diagnosis: Attending: DERIK BISHOP Current LOS: 1 Anticipated DC Date: Planned Disposition: Home Primary Insurance: MEDICARE A & B Discharge Planning Comments: CM met with patient and his spouse at bedside. Patient states that he lives at home with his Latonia and he plans to return there upon discharge. Patient states he has a walker, cane, BSC and shower chair. Patient denies any Home Health services prior to admission. Patient states he feels safe within his home. Patient denies any discharge needs. CM will continue to follow and assist as needed with discharge planning / needs. Gas Golf Cart Repairer: Jessica Garcia DCPIA - Discharge Planning Initial Assessment Updated by [email or web address]: Jessica Garcia on 08/17/18 3:57 pm * Is the patient Alert and Oriented? Yes * How many steps to enter\exit or inside your home? * PCP [facility] * [facility]acy [facility] * Preadmission Environment Home with Family * ADLs Independent * Other Equipment WALKER, CANE, BSC, SHOWER CHAIR * List name and contact numbers for known caregivers / representatives who currently or will assist patient after discharge: LATONIA SHAYE - [phone] * Verbal permission to speak to the caregivers and representatives has been obtained from the patient. Yes * Community resources currently utilized None * Additional services required to return to the preadmission environment? No * Can the patient safely return to the preadmission environment? Yes * Has this patient been hospitalized within the prior 30 days at any hospital? No Last DP export: 08/17/18 3:12 p Patient Name: DELILAH CR Page [id number] at 0902 All edits/amendments must be made on the electronic document DICTATION DATE: 08/19/18900 IRONWORKER APPRENTICE SHOP: OSMAN 08/19/18900 RPT#: [id number] DC DATE:08/18/18 STATUS: DIS IN [facility] [address] [place] [address] END OF REPORT
== END 2018-08-18 12:08 | disposition home or self-care (01) | DRG 920 ==
LOC: D.ICU 11:08
PROVIDERS: Internal Medicine Medical Oncology; ADMIT Thoracic Surgery (Cardiothoracic Vascular Surgery); ATTEND Thoracic Surgery (Cardiothoracic Vascular Surgery)
PROC: 0Y980ZZ Drainage of Left Femoral Region, Open Approach (ICD-10-PCS; principal; 2018-08-16)
DX: L76.34 Postprocedural seroma of skin and subcutaneous tissue following other procedure (principal); C34.12 Malignant neoplasm of upper lobe, left bronchus or lung; E46 Unspecified protein-calorie malnutrition; D64.81 Anemia due to antineoplastic chemotherapy; I71.4 Abdominal aortic aneurysm, without rupture; J38.01 Paralysis of vocal cords and larynx, unilateral; I10 Essential (primary) hypertension; K21.9 Gastro-esophageal reflux disease without esophagitis; F17.200 Nicotine dependence, unspecified, uncomplicated; I89.8 Other specified noninfective disorders of lymphatic vessels and lymph nodes

== ENCOUNTER 2018-08-27 12:32 | Day surgery (SDC) | payer MEDICARE, BC ==
--- NOTE | 2018-08-26 15:09 | MORECARE ---
CASE MANAGEMENT DISCHARGE SUMMARY PATIENT: DELILAH CR UNIT: [id number] ADM DATE: 08/27/18 AGE: 83 : 36 SEX: M ROOM/BED: AUTHOR: MISSY HEAD PHYSICIAN: REFERRING PHYSICIAN: DERIK BISHOP MD DATE OF SERVICE: 08/26/18 Discharge Plan Patient Name: DELILAH CR [facility] [facility] 1935 Planned Disposition: Home Health Service Anticipated Discharge Date: 08/27/18 Discharge Date: Expected LOS: 1 Initial Reviewer: [email or web address] Initial Review Date: 08/26/2018 Generated: 08/26/18 4:08 pm Patient Name: DELILAH CR Page 44988 at 1509 All edits/amendments must be made on the electronic document DICTATION DATE: 08/26/18 1508 MERGERS AND ACQUISITIONS MANAGER: OSMAN 08/26/18 1508 RPT#: [id number] DC DATE: STATUS: PRE [facility] [address] [place] [address] END OF REPORT
--- NOTE | 2018-08-26 15:17 | MORECARE ---
CASE MANAGEMENT DISCHARGE SUMMARY PATIENT: DELILAH CR UNIT: [id number] ADM DATE: 08/27/18 AGE: 83 : 36 SEX: M ROOM/BED: AUTHOR: MISSY HEAD PHYSICIAN: REFERRING PHYSICIAN: DERIK BISHOP MD DATE OF SERVICE: 08/26/18 Discharge Plan Patient Name: [facility]AH CR [facility] [facility] 1935 Planned Disposition: Home Health Service Anticipated Discharge Date: 08/27/18 Discharge Date: Expected LOS: 1 Initial Reviewer: [email or web address] Initial Review Date: 08/26/2018 Generated: 08/26/18 4:17 pm Comments DCP- Discharge Planning Updated by [email or web address]: Sofya Love on 08/26/18 2:[address] CM informed by Jeni, with Dr. Bishop, that patient will need wound vac set up tomorrow after outpatient procedure with Home Health to start vac changes Thursday. CM obtained signed prescription for wound vac. Called Rodo with [facility] about referral. Faxed face sheet and order as requested. Will need to fax op report with wound measurements when available. CM called patient about need for home health services upon hospital discharge. Patient's informed CM that they have chosen [facility]. CM called [facility]. Spoke with Kiarra about referral. Faxed face sheet and prescription for wound vac. Will need to fax home health orders, H&P, and op note tomorrow when available. CM will continue to follow and assist as needed with discharge planning / needs. External Providers External Provider: [facility] [employer] Next Contact Date: Service Request Date: Service Type: Resolution: Reviewer: Comments: Last DP export: 08/26/18 2:08 pm Patient Name: DELILAH CR Page [phone] at 1517 All edits/amendments must be made on the electronic document DICTATION DATE: 08/26/181516 PATIENT FINANCIAL SERVICES MANAGER: OSMAN 08/26/187 RPT#: [id number] DC DATE: STATUS: PRE [facility] [address] [place] [address] END OF REPORT
--- NOTE | 2018-08-26 15:28 | MORECARE ---
CASE MANAGEMENT DISCHARGE SUMMARY PATIENT: DELILAH CR UNIT: [id number] ADM DATE: 08/27/18 AGE: 83 : 36 SEX: M ROOM/BED: AUTHOR: MISSY HEAD PHYSICIAN: REFERRING PHYSICIAN: DERIK BISHOP MD DATE OF SERVICE: 08/26/18 Discharge Plan Patient Name: DELILAH CR [facility] [facility] 1935 Planned Disposition: Home Health Service Anticipated Discharge Date: 08/27/18 Discharge Date: Expected LOS: 1 Initial Reviewer: [email or web address] Initial Review Date: 08/26/2018 Generated: 08/26/18 4:28 pm Comments DCP- Discharge Planning Updated by [email or web address]: Sofay Love on 08/26/18 2:[address] CM informed by Jeni, with Dr. Bishop, that patient will need wound vac set up tomorrow after outpatient procedure with Home Health to start vac changes Thursday. CM obtained signed prescription for wound vac. Called Jeanmariea with [facility] about referral. Faxed face sheet and order as requested. Will need to fax op report with wound measurements when available. CM called patient about need for home health services upon hospital discharge. Patient's informed CM that they have chosen [facility]. CM called [facility]. Spoke with Kiarra about referral. Faxed face sheet and prescription for wound vac. Will need to fax home health orders, H&P, and op note tomorrow when available. CM will continue to follow and assist as needed with discharge planning / needs. External Providers [facility] Next Contact Date: Service Request Date: Service Type: Resolution: Reviewer: Comments: Last DP export: 08/26/18 2:17 pm Patient Name: DELILAH CR Page 47774 at 1528 All edits/amendments must be made on the electronic document DICTATION DATE: 08/26/187 PLASTER MACHINE OPERATOR: OSMAN 08/26/18 1527 RPT#: [id number] DC DATE: STATUS: PRE [facility] [address] [place] [address] END OF REPORT
[~2018-08-27] VITALS: Ht 170.2 cm; Wt 68.0 kg
[2018-08-27 11:59] LABS: CALC OSMOLALITY 266 mosm/kg (275-300); CALCIUM 8.1 mg/dL (8.5-10.1); CARBON DIOXIDE 26.2 mmol/L (21.0-32.0); CHLORIDE - SERUM 102 mmol/L (98-107); GLUCOSE 83 mg/dL (74-106); POTASSIUM - SERUM 4.1 mmol/L (3.5-5.1); SODIUM 134 mmol/L (136-145); UREA NITROGEN 12 mg/dL (7-18); eGFR NON AFRICAN AMERICAN 76 mL/min (90-120)
[~2018-08-27 12:32] MED LIST changes: +[UNRECOGNIZED DRUG - OTHER] PO
[2018-08-27 12:33] VITALS: BP 170/91; Ht 170.2 cm; Wt 68.0 kg
--- NOTE | 2018-08-27 18:10 | MORECARE ---
CASE MANAGEMENT DISCHARGE SUMMARY PATIENT: DELILAH CR UNIT: [id number] ADM DATE: 08/27/18 AGE: 83 : 36 SEX: M ROOM/BED: AUTHOR: ADILENE,DOC PHYSICIAN: REFERRING PHYSICIAN: DERIK BISHOP MD DATE OF SERVICE: 08/27/18 Discharge Plan Patient Name: DELILAH CR Facility: [facility]:[place] : 1935 Planned Disposition: Home Health Service Anticipated Discharge Date: 08/27/18 Discharge Date: Expected LOS: 1 Initial Reviewer: [email or web address] Initial Review Date: 08/26/2018 Generated: 08/27/18 7:10 pm Comments DCP- Discharge Planning Updated by [email or web address]: Sofya Love on 08/27/18 5:[address] Late entry for 14:00 RAGINI notified by Jeni that wound measurements were ready and available for CM to fax to [facility]. CM faxed wound measurements and records to [facility]. Called Rodo with [facility] to notify her of fax and requested her to call as soon as documents were ready for to print for patient signature. CM faxed updated records to Kiarra at [facility]. Called Kiarra and let her know to expect fax. 15:00 CM called Rodo to check on progress of referral. CM was told that everything had been submitted. Was just waiting on insurance verification. 16:00 CM called Rodo to check on progress of referral. was told that [facility] had been very busy today and unable to verify patient's insurance yet, but she would "put a todd on it". 16:55 CM met with patient. Patient decided he will just go home with the disposable vac. [facility] will change vac on Thursday. CM will have [facility] overnight ship vac and supplies to patient's home. CM called Rodo and informed her of this. Rodo verbalized understanding. Will ship supplies to patient. They will arrive at his home tomorrow. DCP- Discharge Planning Updated by [email or web address]: Sofya Love on 08/26/18 2:[address] CM informed by Jeni, with Dr. Bishop, that patient will need wound vac set up tomorrow after outpatient procedure with Home Health to start vac changes Thursday. CM obtained signed prescription for wound vac. Called Natesea with [facility] about referral. Faxed face sheet and order as requested. Will need to fax op report with wound measurements when available. CM called patient about need for home health services upon hospital discharge. Patient's informed CM that they have chosen [facility]. CM called [facility]. Spoke with Kiarra about referral. Faxed face sheet and prescription for wound vac. Will need to fax home health orders, H&P, and op note tomorrow when available. CM will continue to follow and assist as needed with discharge planning / needs. Last DP export: 08/26/18 2:28 pm Patient Name: DELILAH CR Page 54889 at 1810 All edits/amendments must be made on the electronic document DICTATION DATE: 08/27/181808 CROSS CUT SAWYER: OSMAN 08/27/181808 RPT#: [id number] DC DATE: STATUS: REG [facility] [address] [place] [address] END OF REPORT
--- NOTE | 2018-08-28 11:22 | OP ---
PATIENT NAME: DELILAH CR MEDICAL RECORD: [id number] :[birth year] LOCATION:D.OPS ADMISSION DATE: SURGEON: ADRIÁN BISHOP MD DATE OF OPERATION: 08/27/2018 SURGEON: Adrián Bishop MD HAND EDGER: Ricki Cantu MD PROCEDURE PERFORMED: Debridement left groin wound and placement of wound VAC. INDICATIONS: Lymphatic leak after vascular access procedure. COMPLICATIONS: None. SPECIMENS: None. BLOOD LOSS: Minimal. CONDITION: Stable. DISPOSITION: Outpatient surgery and later home. FINDINGS: No discrete leakage site and good granulating tissue, the wound was 6 x 1 x 1.5 cm. INDICATION: Was continued lymphatic leak in a patient on chemotherapy, status post left femoral artery access for urgent repair of large abdominal aortic aneurysm. DESCRIPTION OF PROCEDURE: The patient was brought to the operating suite where general anesthesia was obtained. The old suture removed from the groin. A 10 cc of 0.25% Marcaine were used after all suture material was removed. Thorough irrigation was undertaken. The superficial tissue over the granulating tissue was removed. Hemostasis was ensured. Vancomycin powder was sprinkled on the wound and the wound VAC was cut to the appropriate size and placed, anesthesia reversed. The patient was taken to recovery room stable. Instructions given to the patient's family. TRANSINT:[id number] Voice Confirmation ID: [id number] DOCUMENT ID: [id number] ADRIÁN BISHOP MD at 1122 CC: TRISTON DEUTSCH MD [id number] DICTATION DATE: 08/27/18 1430 COLLAR STARCHER: 08/27/18 2212 [facility] 08/27/[address] [address]
== END 2018-08-27 16:50 | disposition home or self-care (01) ==
LOC: D.OPS 12:32
PROVIDERS: ATTEND Thoracic Surgery (Cardiothoracic Vascular Surgery)
DX: T81.89XA Other complications of procedures, not elsewhere classified, initial encounter (principal); Z01.812 Encounter for preprocedural laboratory examination; Z86.73 Personal history of transient ischemic attack (TIA), and cerebral infarction without residual deficits; I10 Essential (primary) hypertension; I25.10 Atherosclerotic heart disease of native coronary artery without angina pectoris; C34.12 Malignant neoplasm of upper lobe, left bronchus or lung; K21.9 Gastro-esophageal reflux disease without esophagitis; Z96.652 Presence of left artificial knee joint; Z88.8 Allergy status to other drugs, medicaments and biological substances; Z79.82 Long term (current) use of aspirin; Z79.899 Other long term (current) drug therapy

== ENCOUNTER → 2018-09-08 15:47 | Outpatient (CLI) | payer MEDICARE, BC ==
[2018-08-27 12:33] VITALS: BMI 23.5
== END | disposition home or self-care (01) ==
LOC: D.LABREF 15:47
PROVIDERS: ATTEND Thoracic Surgery (Cardiothoracic Vascular Surgery)
DX: T81.89XA Other complications of procedures, not elsewhere classified, initial encounter (principal)

== ENCOUNTER → 2018-12-28 09:27 | Outpatient (CLI) | payer MEDICARE, BC ==
[2018-08-27 12:33] VITALS: BMI 23.5
== END | disposition home or self-care (01) ==
LOC: D.CT 09:27
PROVIDERS: ATTEND Thoracic Surgery (Cardiothoracic Vascular Surgery)
DX: I71.4 Abdominal aortic aneurysm, without rupture (principal)

== ENCOUNTER → 2018-12-30 12:57 | Outpatient (CLI) | payer MEDICARE, BC ==
[2018-08-27 12:33] VITALS: BMI 23.5
== END | disposition home or self-care (01) ==
LOC: D.US 10:00
PROVIDERS: ATTEND Internal Medicine Medical Oncology
DX: R60.0 Localized edema (principal)

== ENCOUNTER 2019-04-29 10:14 | Outpatient (CLI) | payer MEDICARE, BC ==
[~2019-04-29] VITALS: Ht 170.2 cm; Wt 64.5 kg
[2019-04-29 10:59] VITALS: Ht 170.2 cm; Wt 64.5 kg
--- NOTE | 2019-04-29 13:00 | NUR ---
1245 PT IS TOLERATING BLOOD TRANSFUSION. DENIES CP OR SOB. INFUSION RATE STARTED AT 75 CC/HR FOR 15 MINUTES, INCREASED TO 150CC/HR AND NOW AT 200CC/HR.
--- NOTE | 2019-04-29 14:27 | NUR ---
1410 PT IS ON SECOND UNIT OF PRBC'S. PT IS TOLERATING TRANSFUSIONS. DENIES CP, SOB OR ANY ITCHING.
== END 2019-04-29 16:40 | disposition home or self-care (01) ==
LOC: D.OPS 10:14
PROVIDERS: ATTEND Internal Medicine Hematology & Oncology
DX: D51.9 Vitamin B12 deficiency anemia, unspecified (principal); C34.12 Malignant neoplasm of upper lobe, left bronchus or lung

== ENCOUNTER 2019-06-15 12:38 | Outpatient (CLI) | payer MEDICARE, BC ==
[~2019-06-15] VITALS: Ht 170.2 cm; Wt 60.0 kg
[2019-06-15 13:23] VITALS: BP 150/85; Ht 170.2 cm; Wt 60.0 kg
--- NOTE | 2019-06-15 16:22 | NUR ---
1610 IV REMOVED AND INSTRUCYIONS GIVEN
== END 2019-06-15 16:15 | disposition home or self-care (01) ==
LOC: D.OPS 12:38
PROVIDERS: ATTEND Internal Medicine Medical Oncology
DX: D64.81 Anemia due to antineoplastic chemotherapy (principal); C34.12 Malignant neoplasm of upper lobe, left bronchus or lung

== ENCOUNTER → 2019-07-20 12:13 | Outpatient (CLI) | payer MEDICARE, BC ==
[2019-06-15 13:23] VITALS: BMI 20.7
== END | disposition home or self-care (01) ==
LOC: D.US 12:13
PROVIDERS: ATTEND Internal Medicine Medical Oncology
DX: C34.12 Malignant neoplasm of upper lobe, left bronchus or lung (principal); E86.0 Dehydration; R05 Cough; G89.3 Neoplasm related pain (acute) (chronic); Z51.11 Encounter for antineoplastic chemotherapy; R09.89 Other specified symptoms and signs involving the circulatory and respiratory systems; D70.1 Agranulocytosis secondary to cancer chemotherapy

== ENCOUNTER → 2019-07-27 14:53 | Outpatient (CLI) | payer MEDICARE, BC ==
[2019-06-15 13:23] VITALS: BMI 20.7
== END | disposition home or self-care (01) ==
LOC: D.RAD 14:53 → D.RT 15:30
PROVIDERS: ATTEND Internal Medicine Pulmonary Disease
DX: J44.9 Chronic obstructive pulmonary disease, unspecified (principal); J90 Pleural effusion, not elsewhere classified

== ENCOUNTER → 2019-10-04 12:02 | Outpatient (CLI) | payer MEDICARE, BC ==
[2019-06-15 13:23] VITALS: BMI 20.7
== END | disposition home or self-care (01) ==
LOC: D.MRI 09-30 15:00 → D.RAD 12:02
PROVIDERS: ATTEND Internal Medicine Medical Oncology
DX: R13.10 Dysphagia, unspecified (principal); E03.2 Hypothyroidism due to medicaments and other exogenous substances; K90.49 Malabsorption due to intolerance, not elsewhere classified; G89.3 Neoplasm related pain (acute) (chronic); R09.89 Other specified symptoms and signs involving the circulatory and respiratory systems; E86.0 Dehydration; R05 Cough; Z79.899 Other long term (current) drug therapy; R60.0 Localized edema; C77.1 Secondary and unspecified malignant neoplasm of intrathoracic lymph nodes; D51.9 Vitamin B12 deficiency anemia, unspecified; D50.9 Iron deficiency anemia, unspecified; D64.81 Anemia due to antineoplastic chemotherapy; D70.1 Agranulocytosis secondary to cancer chemotherapy; C78.02 Secondary malignant neoplasm of left lung; C34.12 Malignant neoplasm of upper lobe, left bronchus or lung